=== PATIENT | female | born 1985 ===

== ENCOUNTER 2020-04-26 11:15 | Emergency (ER) | payer SELFPAY ==
--- NOTE | 2020-04-26 11:32 | Emergency Department Report ---
Blank Doc - Documentation Documentation: 34-year-old female that presents with vaginal bleeding and vaginal bleeding. stated has positive test yesterday. This initial assessment/diagnostic orders/clinical plan/treatment(s) is/are subject to change based on patient's health status, clinical progression and re- assessment by fellow clinical providers in the ED. Further treatment and workup at subsequent clinical providers discretion. Patient/guardians urged not to elope from the ED as their condition may be serious if not clinically assessed and managed. Initial orders include: 1- Patient sent to [facility] for further evaluation and treatment 2- labs 3- UA 4- US OB
[2020-04-26 12:14] LABS: Basophils % (Auto) 0.4 % (0.0-1.8); Eosinophils # (Auto) 0.1 K/mm3 (0.0-0.4); Eosinophils % (Auto) 1.4 % (0.0-4.3); Lymphocytes # (Auto) 1.3 K/mm3 (1.2-5.4); Lymphocytes % (Auto) 23.9 % (13.4-35.0); Mean Corpuscular HGB Conc 30 % (30-34); Monocytes # (Auto) 0.3 K/mm3 (0.0-0.8); Platelet Count 358 K/mm3 (140-440); Red Blood Count 5.48 M/mm3 (3.65-5.03); Red Cell Distribution Width 19.5 % (13.2-15.2)
[2020-04-26 12:15] LABS: Hematocrit 35.4 % (30.3-42.9); Hemoglobin 10.7 gm/dl (10.1-14.3); Mean Corpuscular Volume 65 fl (79-97)
--- NOTE | 2020-04-26 12:22 | Emergency Department Report ---
ED General Adult HPI - General Chief complaint: Vaginal Bleeding Stated complaint: HEAVY BLEEDING Time Seen by Provider: 04/26/20 11:31 Source: patient Mode of arrival: Ambulatory Limitations: No Limitations - History of Present Illness Initial comments: Patient is a 34-year-old female who comes to the emergency room today with heavy vaginal bleeding. She states it started late last night. She endorses taking a test that was positive. The [facility] in triage has sent patient for an ultrasound that has subsequently come back with a fibroid and a beta quant less than 2. Patient is not in her room at 1255 RN aware. -: Sudden, hour(s) Improves with: none Worsens with: none Associated Symptoms: denies other symptoms Treatments Prior to Arrival: none - Related Data Allergies Allergy/AdvReac Type Severity Reaction Status Date / Time No Known Allergies Allergy Unverified 04/26/20 11:31 ED Review of Systems ROS: Stated complaint: HEAVY BLEEDING Other details as noted in HPI Comment: All other systems reviewed and negative ED Past Medical Hx - Past Medical History Previous Medical History?: Yes Additional medical history: ANEMIA - Surgical History Past Surgical History?: No - Family History Family history: no significant - Social History Smoking Status: Never Smoker Substance Use Type: None ED Physical Exam - General Limitations: No Limitations General appearance: alert, in no apparent distress - Head Head exam: Present: atraumatic, normocephalic - Eye Eye exam: Present: normal appearance - ENT ENT exam: Present: mucous membranes moist - Neck Neck exam: Present: normal inspection - Respiratory Respiratory exam: Present: normal lung sounds bilaterally. Absent: respiratory distress - Cardiovascular Cardiovascular Exam: Present: regular rate, normal rhythm. Absent: systolic murmur, diastolic murmur, rubs, gallop - GI/Abdominal GI/Abdominal exam: Present: soft, normal bowel sounds - Extremities Exam Extremities exam: Present: normal inspection - Back Exam Back exam: Present: normal inspection - Neurological Exam Neurological exam: Present: alert, oriented X3 - Psychiatric Psychiatric exam: Present: normal affect, normal mood - Skin Skin exam: Present: warm, dry, intact, normal color. Absent: rash ED Course Vital Signs 04/26/20 11:33 Temperature 98.3 F Pulse Rate 76 Respiratory 18 Rate Blood Pressure 116/75 O2 Sat by Pulse 100 Oximetry ED Medical Decision Making - Lab Data Result diagrams: 12/17/20 11:40 - Radiology Data Radiology results: report reviewed, image reviewed Per radiology no evidence of gestational sac: There is a small fibroid - Medical Decision Making Beta hCG less than 2. Ultrasound negative for gestational sac Lab Results 04/26/20 04/26/20 04/26/20 Range/Units 11:40 11:40 11:40 WBC 5.4 (4.5-11.0) K/mm3 RBC 5.48 H (3.65-5.03) M/mm3 Hgb 10.7 (10.1-14.3) gm/dl Hct 35.4 (30.3-42.9) % MCV 65 L (79-97) fl MCH 20 L (28-32) pg MCHC 30 (30-34) % RDW 19.5 H (13.2-15.2) % Plt Count 358 (140-440) K/mm3 Lymph % (Auto) 23.9 (13.4-35.0) % [place] % (Auto) 6.0 (0.0-7.3) % Eos % (Auto) 1.4 (0.0-4.3) % Baso % (Auto) 0.4 (0.0-1.8) % Lymph # (Auto) 1.3 (1.2-5.4) K/mm3 [place] # (Auto) 0.3 (0.0-0.8) K/mm3 Eos # (Auto) 0.1 (0.0-0.4) K/mm3 Baso # (Auto) 0.0 (0.0-0.1) K/mm3 Seg Neutrophils % 68.3 (40.0-70.0) % Seg Neutrophils # 3.7 (1.8-7.7) K/mm3 HCG, Quant < 2 (0-4) mIU/mL Blood Type A POSITIVE Hemoglobin noted to be normal A positive blood type 1255 patient not in room. RN aware. Patient gone from her room prior to the time which her urine resulted. If she should have a UTI that requires treatment we will need to attempt to reach the patient. Vital Signs 04/26/20 11:33 Temperature 98.3 F Pulse Rate 76 Respiratory 18 Rate Blood Pressure 116/75 O2 Sat by Pulse 100 Oximetry - Differential Diagnosis Rule out Critical care attestation.: If time is entered above; I have spent that time in minutes in the direct care of this critically ill patient, excluding procedure time. ED Disposition Clinical Impression: Vaginal bleeding, Uterine fibroid Disposition: TO HOME OR SELFCARE Is pt being admited?: No Does the pt Need Aspirin: No Condition: Stable Instructions: Uterine Fibroids, [id number] Additional Instructions: neg test ultrasound shows only fibroid follow up with obgyn referral below motrin or tylenol for pain Referrals: LOU BRANDON MD [Staff Physician] - 3-5 Days Time of Disposition: 12:59
--- NOTE | 2020-04-26 12:28 | Ultrasound Report ---
US OB <= 14 weeks fetus, US OB transvaginal INDICATION / CLINICAL INFORMATION: pelvic pain and vaginal bleeding. COMPARISON: None available. FINDINGS: Small (1.2 cm) posterior uterine fibroid. Endometrial stripe is clearly demonstrated, measuring 9 mm in thickness. There is no intrauterine . Both ovaries are normal. Color Doppler imaging shows normal vascular flow in each. No free fluid. IMPRESSION: 1. No evidence of intrauterine or extrauterine . 2. Small posterior uterine fibroid. Signer Name: Cyrus Chen MD Signed: 04/26/2020 12:24 PM Workstation Name: [id number]
[2020-04-26 13:01] LABS: Bilirubin,Urine NEG (Negative); Blood,Urine LG (Negative); Color,Urine Red (Yellow); Mucus,Urine FEW /HPF; Protein,Urine <15 mg/dL mg/dL (Negative); Urobilinogen,Urine < 2.0 mg/dL (<2.0)
[2020-04-26 16:54] VITALS: BP 110/77
== END 2020-04-26 17:50 | disposition home or self-care (01) ==
LOC: ED 11:15
DX: D25.9 Leiomyoma of uterus, unspecified (principal)
CPT/HCPCS: 36415; 76801; 76817; 81001; 84702; 85025; 86900; 86901